=== PATIENT | female | born 1965 | race Hispanic/Latino ===

== ENCOUNTER 2024-01-20 20:52 | Inpatient (IN) | payer SELFPAY ==
[2024-01-20] VITALS (10 sets, daily range): BP systolic 74–171; BP diastolic 45–94; BMI 20.5; BMI 22.3
[2024-01-20 14:38] LABS: % Basophils 0.6 % (0-2); % Immature Granulocytes 0.4 % (0-0.5); % Lymphocytes 24.6 % (20.5-51.1); % Monocytes 7.9 % (1.7-9.3); % Neutrophils 65.5 % (42.2-75.2); Absolute Basophils 0.1 10^3/uL (0-0.2); Absolute Eosinophils 0.1 10^3/uL (0-0.7); Absolute Lymphocytes 2.6 10^3/uL (1.2-3.4); Absolute Monocytes 0.9 10^3/uL (0.1-0.6); Hematocrit 42.5 % (37.0-47.0); Hemoglobin 14.8 g/dL (12.0-16.0); Mean Corp Hgb Conc. 34.8 g/dL (33.0-37.0); Mean Corpuscular Hgb 30.9 pg (27.0-31.0); Mean Corpuscular Volume 88.7 fL (81.0-99.0); Mean Platelet Volume 10.1 fL (7.4-10.4); Nucleated Red Blood Cells % 0 %; Platelet Count 265 10^3/uL (130-400); Red Blood Cell Count 4.79 10^6/uL (4.20-5.40); Red Cell Dist. Width 13.6 % (11.5-14.5); White Blood Cell Count 10.7 10^3/uL (4.8-10.8)
--- NOTE | 2024-01-20 14:41 | EDRN ---
Unable to obtain axiliary temperature at this time. Patient answering very minimal questions at this time. Patient restrained in soft restrains per verbal order of Dr. Sexton. at bedside.
--- NOTE | 2024-01-20 14:47 | ED.GENMED ---
History of Present Illness
General
Chief Complaint: Crisis Evaluation
Source: spouse and ambulance crew
Time Seen by Provider: 01/20/24 14:40
Nursing documentation reviewed up to this point in time: agreed with
History of Present Illness
History of Present Illness:
The patient is a 59-year-old female with a past medical history of epilepsy who was brought in by paramedics after her [id number] noted her to be having abnormal behavior just prior to arrival. According to her , the patient has had a
history of psychotic behavior at least twice over the last 10 years. He reports that he had been at work early this morning and his father called him she reports that the patient was roaming around, was agitated, and seemed to be talking to people
who were not there. No seizure activity had been witnessed, however her reports that he has been at work. reports patient has been doing well and reports no changes. reports that patient does not do drugs, drink alcohol or
smoke cigarettes. Patient does not offer any history. Initially patient arrived agitated and thrashing around. Now, patient is laying still and appears somnolent and will not respond to questions. She will not follow any simple commands or give
any history. However, she appears to be in no acute distress. Her reports that this is exactly how her previous episodes of psychosis have presented.
Past History
Past History
ED Past Medical History: Seizures and Psychiatric
ED Past Surgical History: Other
Social History
Tobacco: Non-smoker
Alcohol: None
Drug: None
Personal:
Living: with family
Employment: Other
Family History
Family History: Hypertension
Review of Systems
Review of Systems
Allergies reviewed?: Yes
Unable to obtain full review of systems at this time due to: non-verbal
Other source history: family
All Other Systems: Not applicable
Phy Exam
Physical Exam
Physical Exam:
Physical Exam
General: Patient appears agitated, occasionally thrashes her body around but then lays still. Will not answer any questions or follow any simple commands. At times hyperventilates. Atraumatic appearing face and head
Neck: supple.
Heart: s1/s2 regular rate and rhythm, no murmur. equal radial pulses.
Lungs: no acute respiratory distress. clear bilaterally
Abdomen: Soft
Neuro: Opens eyes occasionally to voice. Nonfocal
Skin: no rash
Psychiatric: Bizarre, agitated, noninteractive
Extremities: no edema. no calf tenderness. negative homans. good distal pulses
Course
Orders/Labs/Results
Orders:
Orders
01/20/24 14:30
Acetaminophen Urgent
Alcohol Urgent
Complete Blood Count/With Diff Urgent
Comprehensive Metabolic Panel Urgent
Salicylate Urgent
01/20/24 14:40
Lorazepam [Ativan] 1 mg IV NOW STA
01/20/24 14:44
1:1 Observation - Suicide/ Violent Behavior As Directed
Crisis Consult Urgent
Reason for Consult: active psychosis
Crisis Consult Urgent
Reason for Consult: psychosis
Restraints - Violent As Directed
Restraint Type-: Soft Limb-4 point/4 rails
Apply From (date): 01/20/24
Apply from (time): 14:44
Remove (date): 01/20/24
Remove (time): 18:44
01/20/24 14:45
PSYCHIATRY CONSULT Urgent
Consulting Provider: Corazon Perdomo
Was physician already notified: Yes
Reason for consult: acutely psychotic
01/20/24 14:53
Add On- LAB Urgent
Tests Added?: acetaminophen, salicylate
01/20/24 15:38
CT Head W/o Iv Contrast Urgent
Comment:
Reason For Exam: MS change
01/20/24 16:06
Risperidone Disintegrating [Risperdal M-Tab (Orally Disintegrating)] 1 mg PO NOW STA
Risperidone Disintegrating [Risperdal M-Tab (Orally Disintegrating)] 2 mg PO NOW STA
01/20/24 16:08
Lorazepam [Ativan] 2 mg PO NOW STA
01/20/24 16:36
Risperidone Disintegrating [Risperdal M-Tab (Orally Disintegrating)] 1 mg PO NOW STA
01/20/24 17:15
0.9% Sodium Chloride 1000 ml [Nss] 1,000 ml IV BOLUS
01/20/24 17:27
Risperidone Disintegrating [Risperdal M-Tab (Orally Disintegrating)] 0.5 mg PO BIDPRN PRN
01/20/24 17:41
Carbon Dioxide Urgent
Lactic Acid Urgent
Total CK [Creatine Phosphokinase] Urgent
Venous Blood Gas Urgent
%Oxygen/Room Air: RA
01/20/24 17:59
0.9% Sodium Chloride 1000 ml [Nss] 1,000 ml IV BOLUS
01/20/24 20:00
Risperidone Disintegrating [Risperdal M-Tab (Orally Disintegrating)] 0.5 mg PO BID
Abnormal Lab Results
01/20/24 01/20/24
14:30 17:41
Absolute Neuts (auto) 7.0 H 10^3/uL
(1.4-6.5)
Absolute Monos (auto) 0.9 H 10^3/uL
(0.1-0.6)
VBG pO2 74 H mmHg
(30-50)
VBG HCO3 20.4 L mmol/L
(22-27)
Carbon Dioxide 11 L* mmol/L 19 L mmol/L
(22-30) (22-30)
BUN 24 H mg/dl
(7-17)
Creatinine 1.1 H mg/dL
(0.6-1.0)
Glucose 105 H mg/dl
(70-99)
Calcium 10.5 H mg/dl
(8.4-10.2)
Creatine Kinase 628 H U/L
(30-135)
Total Protein 8.9 H g/dl
(6.3-8.2)
Albumin 5.4 H g/dl
(3.5-5.0)
Salicylates < 1.0 L mg/dl
(2.0-20.0)
Acetaminophen < 10 L ug/ml
(10-30)
01/20/24 14:30
01/20/24 17:41
Vital Signs
Initial and Last Documented VS:
Initial Vital Signs
Pulse Resp BP Pulse Ox
81 22 171/92 97
01/20/24 14:24 01/20/24 14:24 01/20/24 14:24 01/20/24 14:24
Last Documented Vital Signs
Temp Pulse Resp BP Pulse Ox
97.9 F 66 18 95/69 100
01/20/24 15:19 01/20/24 15:19 01/20/24 14:28 01/20/24 15:19 01/20/24 15:19
MDM/Problems Addressed
Differential Diagnosis Includes:
Postictal, acute psychosis, intracranial hemorrhage
MDM/Problems Addressed:
Patient presents with acute mental status change
Chronic conditions affecting care:
Seizures, history of psychosis
Acute Exacerbation and/or Progression of Chronic Illness:
Patient may have acute exacerbation of chronic psychiatric illness
*Radiology
Radiology exam reviewed: radiology read reviewed
*Pulse Oximetry
Patient hypoxic: no
*EKG
Interpreted by ED Provider?: NA
*Fur Floor Worker Interpretation
Rate: normal
Interpretation: normal
Rhythm: sinus
*Critical Care Note
Total Time (30-74mins, 75-104mins- exclusive of procedures): 45 minutes
comment:
45 minutes critical care given to patient including frequent reassessments of her mental status, reviewing her lab work, CT head hide speaking to the hospitalist, the patient's and psychiatrist
Data Reviewed
Review of Other/Old Records Reveals: Progress Notes (Psychiatry progress note reviewed from 2021 which shows the patient has had a history of acute psychosis)
Source: family ( who is at the bedside) and ambulance crew
Patient Management
Discussion with other providers: Hospitalist and Other (Psychiatry)
Escalation/DeEscalation of care consider admission/obs:
Given patient's acidosis and mental status change, decision made to admit the patient. Patient has mild rhabdo which is perhaps due to her thrashing her body around or patient may have had a seizure earlier in the day today that was unwitnessed.
ED Attending Note
-
Portions of this chart may have been created with voice recognition software.� Occasional wrong word or��sound alike� substitutions may have occurred due to the inherent limitations of voice recognition software.
Discharge Plan
Departure
Patient Disposition: Admit
Date of Disposition: 01/20/24
Time of Disposition: 18:54
Admit to: Telemetry
Presentation/result/management discussed w/ accepting MD/DO: Hospitalist
Patient with high blood pressure during this ER visit?: Yes
Condition: Fair
Covid-19: Not Applicable
Discharge Problem:
Acute psychosis, Acute metabolic acidosis, Acute rhabdomyolysis
Prescriptions:
No Action
zonisamide [Zonegran] 100 mg Capsule
200 mg PO DAILY
zonisamide [Zonegran] 100 mg Capsule
300 mg PO HS
Referrals:
UNKNOWN - PT DOES,NOT KNOW [Family Provider] -
Interventions
Interventions:
*Risk Screen - Suicide Last Done: 01/20/24 14:40
*General Assessment Last Done: 01/20/24 15:27
*Neglect/Abuse Screening Last Done: 01/20/24 14:40
ED- Fall Risk Assessment Last Done: 01/20/24 15:18
*ED COVID-19 Vaccine History Last Done: 01/20/24 14:40
ED-Psychological Assessment Last Done: 01/20/24 14:48
Discharge Date and Time
Print Language: MAORI
[2024-01-20 14:56] LABS: Alcohol < 10 mg/dl; Blood Urea Nitrogen 24 mg/dl (7-17); Calcium 10.5 mg/dl (8.4-10.2); Carbon Dioxide 11 mmol/L (22-30); Chloride 106 mmol/L (98-107); Glucose 105 mg/dl (70-99); Potassium 4.2 mmol/L (3.5-5.1); Sodium 143 mmol/L (135-145); eGFR 58.61
--- NOTE | 2024-01-20 15:09 | EDRN ---
Restraints removed @ 1505. Patient resting and calm at this time.
--- NOTE | 2024-01-20 15:27 | EDRN ---
Pt's is at bedside. Pt initially supine in 4 point soft restraints upon this RN's evaluation. Dr Sexton came in to see pt at same time - pt calm so all restraints removed by SHERIF Mayfield. This RN wrapped pt's L hand #20g with gauze
wrap. Ring on pt's L index finger removed and handed to pt's who put it on his L 5th finger. Offered him a specimen cup for the ring which he declined and said he would put it in his wallet. Pt opens eyes spontaneously, will occasionally
answer questions with one word answers. Pt unable to provide HPI. says he was called by his father to check on pt and it appeared she was talking to someone that was not there and flailing her arms. says this is not like pt's
seizures and that he thinks she had 'a psychotic break.' Slipper socks and warm blanket provided to pt. Lights dimmed.
[2024-01-20 15:36] LABS: ALT (SGPT) 24 U/L (0-35); AST (SGOT) 30 U/L (14-36); Acetaminophen < 10 ug/ml (10-30); Albumin 5.4 g/dl (3.5-5.0); Alkaline Phosphatase 111 U/L (38-126); Salicylate < 1.0 mg/dl (2.0-20.0); Total Bilirubin 0.5 mg/dl (0.2-1.3); Total Protein 8.9 g/dl (6.3-8.2)
--- NOTE | 2024-01-20 16:00 | CON.MD ---
Consultation - Medical
-
59 yr old F brought to the hospital by her for concerns of sudden bizarre/psychotic behavior. As per this happens every few years and generally resolves after some days, he is not sure what causes this however. Pt previously seen by
psychiatry at in 2021, 2018 and 2018 with similar presentation. It appears from chart review that she has a history of seemingly bizarre/psychotic behavior following seizure, acute illness and/or perhaps environmental stressor.
Pt is able to respond to questions but is limited as she is continuously writhing on hospital bed, notably euphoric, seems to be interacting with something unseen - is able to respond to simple direct questions, is fully oriented, denies depression
(in fact as noted seems quite euphoric). Is not able to meaningfully explain what she is experiencing or when it started (according to he was at work and pts dad called at 1pm because this behavior has suddenly started, saw pt last night as
she was 'totally normal').
As per prior eval in 2019, 'noted to be quite bizarre - was dancing and moving limbs repetitively, repeating phrase in telugu. However was able to stop and follow commands'
Prior such episodes seem to have all self resolved, has had perhaps 4-5 similar events. denies any psychosis otherwise - no delusions observed, no AVH, pt does not talk to herself.
Was being seen at [facility] for depression until 2021, prescribed celexa 20mg at the time, not currently taking. No other significant psychotropic hx.
Does have hx of seizure d/o reportedly fairly stable on keppra
Labs show CO2 11, BUN 24, Cr 1.1 - ABGs pending, being rehydrated
CT scan pending
and she together since 1992, live together - have 3 kids, all adults. Pt does not currently work.
MSE: female, in hospital gown, poor eye contact (sleeping). Unable to assess mood, thought content, thought process, orientation or insight/judgement at this time.
Possibly post-ictal psychosis? vs TME due to underlying physiologic cause
Based on history & current sxs, underlying primary psychotic disorder is unlikely
This behavior has not been dangerous in the past, nor is it currently dangerous - pt is not a threat to herself or to others so would not warrant involuntary psychiatric intervention.
Based on patient history would rule out possible underlying medical issue that may be causing this change in behavior prior to considering this to be primarily psychiatric - if no underlying medical issues identified, then can pursue inpatient
psychiatric admission
Ordered risperidone 1mg + ativan 2mg as may be post-ictal presentation based on hx and risperidone can help psychotic sxs regardless of primary cause
risperidone 0.5mg BID + 0.5mg BIDPRN acute agitation
[2024-01-20] MEDS: ATIVAN 2 MG PO (16:21)
[2024-01-20] MEDS: RISPERDAL M-TAB (ORALLY DISINTEGRATING) 1 MG PO (16:23)
--- NOTE | 2024-01-20 16:44 | EDRN ---
Pt was given 1mg risperdal as ordered at 1623. Scanned pt's bracelet and screen said psychiatrist was in the chart, unable to scan bracelet. Psychiatrist then cancelled the 1mg risperadal that was already given and ordered 2mg risperdal. This RN
put in the original order for the 1mg risperdal that was already given to pt. [facility] and new 2mg order. 2mg order to be cancelled, 1mg risperdal is sufficient at this time.
[2024-01-20] MEDS: NSS 1000 IV ×3 (17:42→23:19)
[2024-01-20 17:56] LABS: Venous Blood Gas B.E. -4.7 mmol/L (-4 to +4); Venous Blood Gas HCO3 20.4 mmol/L (22-27); Venous Blood Gas O2 Sat % 95.9 %; Venous Blood Gas pCO2 37 mmHg (35-48); Venous Blood Gas pH 7.35 (7.32-7.43); Venous Blood Gas pO2 74 mmHg (30-50)
[2024-01-20 18:17] LABS: Lactic Acid 0.9 mmol/L (0.7-2.0)
--- NOTE | 2024-01-20 18:19 | EDRN ---
Called pharmacy to verify risperdal orders
[2024-01-20 18:27] LABS: Carbon Dioxide 19 mmol/L (22-30); Creatine Phosphokinase 628 U/L (30-135)
--- NOTE | 2024-01-20 19:49 | HPS.HSE ---
Family Physician
-
Family Physician: NOT KNOW UNKNOWN - PT DOES
Chief Complaint
-
acute psychosis
History of Present Illness
I could not get any information from the patient as
Information gathered by chart review and speaking with the ER staff.
HPI
59F HZ Sz on Zonisamide BiB concerns of sudden bizarre/psychotic behavior.
- As per this happens every few years and generally resolves after some days,
- Per Crisis consult previously seen by psychiatry at in 2021, 2018 and 2017 with similar presentation.
It appears from chart review that she has a history of seemingly bizarre/psychotic behavior following seizure, acute illness and/or perhaps environmental stressor.
- Prior episodes seem to have all self resolved, has had perhaps 4-5 similar events.
- Was being seen at [facility] for depression until 2021, prescribed celexa 20mg at the time, not currently taking.
No other significant psychotropic hx.
HX seizure d/o reportedly fairly stable on keppra
ROS: denies any psychosis otherwise - no delusions observed, no AVH, pt does not talk to herself.
Medical History
Past Medical History
Past Medical History: Reports Seizures
Past Surgical History: Reports
Social History
Tobacco: Non-smoker
Alcohol: Other
Drug: None
Personal:
Living: With Family
Family History
Family History: Not pertinent
Allergies / Home Medications
Allergies reflects when Allergies were last updated in [facility].
Home Medications with original date entered in [facility]
Allergy/Medication List:
Allergies
Allergy/AdvReac Type Severity Reaction Status Date / Time
No Known Allergies Allergy Verified 07/22/21 16:44
Home Medications
zonisamide 100 mg capsule (Zonegran) 200 mg PO DAILY 01/20/24
zonisamide 100 mg capsule (Zonegran) 300 mg PO HS 01/20/24
Review of Systems
-
Constitutional: Reports No Symptoms
EENT: Reports No Symptoms
Respiratory: Reports No Symptoms
Cardiac: Reports No Symptoms
Abdomen/GI: Reports No Symptoms
: Reports No Symptoms
Musculoskeletal: Reports No Symptoms
Skin: Reports No Symptoms
Neurological: Reports No Symptoms
Endocrine: Reports No Symptoms
Hematologic/Lymphatic: Reports No Symptoms
Psych: Reports See HPI
Physical Exam
Vital Signs
Vital Signs
Temp Pulse Resp BP Pulse Ox
97.9 F 66 18 95/69 100
01/20/24 15:19 01/20/24 15:19 01/20/24 14:28 01/20/24 15:19 01/20/24 15:19
Physical Exam
General: Other (sedated ); No Conversant
HEENT: NormoCephalic and Atraumatic
Respiratory: Clear
Cardiac: S1/S2 and Regular Rhythm; No Murmur or Rub
GI: Soft, Non Tender, Non Distended and Normal Bowel Sounds; No Organomegaly
Rectal: Deferred by Provider
Musculoskeletal: No Clubbing, No Cyanosis and No Edema
Skin: No Rash
Neuro: Sedated; No Awake or Alert
Psych: Other (sedated )
Laboratory Results
-
01/20/24 14:30
01/20/24 17:41
Laboratory Results
Lactic Acid 0.9 mmol/L (0.7-2.0) 01/20/24 17:41
Total Bilirubin Cancelled 01/20/24 14:40
AST Cancelled 01/20/24 14:40
ALT Cancelled 01/20/24 14:40
Alkaline Phosphatase Cancelled 01/20/24 14:40
Data Reviewed
-
CT Scan: Other (pending )
Lab Data: Labs Reviewed by me
Old Records: Reviewed
Impression/Plan
-
Vital Signs
Temp Pulse Resp BP Pulse Ox
97.9 F 66 18 95/69 100
01/20/24 15:19 01/20/24 15:19 01/20/24 14:28 01/20/24 15:19 01/20/24 15:19
Data
Unremarkable CBC
CO2 19
Cr 1.1 eGFR 58
LA 0.9
CK 628
ETOH < 10
VB.35/ VpCO2 37/ VpO2 79
Last hospitalist admission: DATE OF ADMISSION: 06/20/2021 - DATE OF DISCHARGE: 06/28/2021
ASSESSMENT & PLAN
Metabolic acidosis, elevated CPKs likely due to unwitnessed Sz
- IV NS
- IVF and trend metabolic acidosis and CPK
Sedated but protecting AW
S/p Sudden bizarre/psychotic behavior highly suspect post ictal psychosis
Presumptive breakthrough seizure
HX seizures currently on Zonisamide
- NPO and IVF
- Speech to screen for nutrition
- cont Zonisamide
- IV Ativan PRN
- EEG
- Neuro consult
Acute psychotic behavior suspect post ictal acute behavioral dysfunction
s/p risperidone 1mg + Ativan 2mg as may be post-ictal presentation based on hx
- c/w risperidone 0.5mg BID + 0.5mg BID PRN acute agitation per Psych
- Psych consulted
DVT Px: SCD
Full code
IP TLM
--- NOTE | 2024-01-20 20:02 | EDRN ---
Pt moved from C1 to ED#1 since she is a medical admission. L Hand #20g positional so IVFs have been slow to infuse. This RN inserted second IV R forearm #20g and moved ivf to this site. Pt responds to pain, opens eyes spontaneously and falls back
to sleep quickly.
[2024-01-20] MEDS: RISPERDAL M-TAB (ORALLY DISINTEGRATING) 0.5 MG PO (20:11)
--- NOTE | 2024-01-20 20:18 | EDRN ---
Despite new IV site R forearm, IVF slow to infuse because when pt pulls her arm up to her chest, IVF stop infusing. When arm straightened, IVF infuse well. Arm board placed on R forearm to facilitate infusion of IVF
--- NOTE | 2024-01-20 21:30 | PTCARENOTE ---
Pt arrived to room 426-01. Pt transferred from stretcher to bed. Pt AOOx 2, disoriented to year. VSS. Pt calm, cooperative, pleasant. Pt oriented to room call [place] placed within reach.
[2024-01-20] MEDS: ZONEGRAN 300 MG PO (23:27)
[2024-01-21 07:23] VITALS: BP 94/70
--- NOTE | 2024-01-21 08:02 | CON.NEURO ---
Neuro Assessment/Plan
Assessment
Abrupt recurrent onset of confusion, and delusions
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
Plan
patient should have outpatient subspecialist evaluation with [facility] Neurosurgical epilepsy consideration
outpatient MRI of brain with and without contrast
continue Zonisamide 200 mg and 300 mg dosing
start Valproic acid 250 mg BID
outpatient EEG > 1 hour
patient already not driving
Will follow as needed. Patient should follow with usual outpatient neurologist.
Consultation
Order
Date of Consultation: 01/21/24
Requesting Provider: Hospitalist
Reason for Consult: change in mental status
Subjective/Objective
Subjective Data
Date of Service: January 21, 2024
Adapted from my coworkers consultation:
'DATE/TIME OF CONSULTATION: 06/21/2021
Reason for Consultation: Seizure
56-year-old female with a history of seizures was found by her father in law on the ground. She likely had a seizure and had a fall per report. He was not home at that time. They suspect she had a seizure at home although this was
unwitnessed. She also injured her left eye and it appears bruising in her left eye. Patient denies tongue biting or loss control of urination during the events. She was not really able to remember what has happened before she lost consciousness.
Regarding her seizure, she has been following up with local neurologist to Dr. Bunch. She has been taking Trileptal 600 mg in the morning and 900 mg QHS. Her has been reported that patient's baseline seizure frequency is about once every 6 months
with a staring. She does not typically has tonic-clonic seizure activities.
Her reported patient had seizure evaluation with brain MRI and EEG in the past which were unremarkable. She also tried Keppra and Lamictal in the past however she was not able to tolerate both medications due to side effect.'
Subsequent EEGs performed on sequential days x 3 were unremarkable.
Patient received lacosamide and was taken off carbamazepine. Patient was then rotated to zonisamide from lacosamide during that admission. There are no additional notes to add information regarding the patient's care following this hospitalization.
Return to this hospital's emergency department with behavior described as roaming with agitation with interaction with oral hallucinations.
Patient has undergone 8 CAT scans of the head since 2007 which have been all described as unremarkable.
Patient indicates that her memories became confused. Headaches began at age 15. She indicates she has a history of seizures starting at age 21. Currently she indicates confusion has continued.
Objective Data
Vital Signs
Temp Pulse Resp BP Pulse Ox
36.9 C 72 16 94/70 99
01/21/24 07:23 01/21/24 07:23 01/21/24 07:23 01/21/24 07:23 01/21/24 07:23
Sodium Cancelled 01/21/24 06:26
Potassium Cancelled 01/21/24 06:26
BUN Cancelled 01/21/24 06:26
Glucose Cancelled 01/21/24 06:26
Calcium Cancelled 01/21/24 06:26
Ur Buprenorphine Cancelled 01/20/24 17:20
Patient Allergies
No Known Allergies Allergy (Verified 07/22/21 16:44)
Review of Systems
-
History Source: Patient
All other systems: Reviewed and negative
EENT: Negative Decreased Vision or Swallowing Difficulty
Respiratory: Negative Trouble Breathing
Cardiac: Negative Chest Pain
Abdomen/GI: Negative Incontinence of Stool
Genitourinary: Negative Incontinence
Musculoskeletal: Negative Back Pain or Neck Pain
Neuro: Dizzy; Negative Headache
Physical Exam
-
General: No Apparent Distress and Appears Stated Age
Eyes: OU Absent Papilledema, Able to visualize OU, Round OU, [place] Conjunctivae and No Ptosis
HEENT: Anicteric and Moist Mucous Membranes
Neck: Full Range of Motion
Respiratory: No Dyspnea
Cardiac: No JVD
GI: Non-distended
Skin: Unremarkable
Extremities: No Clubbing, No Cyanosis and No Edema
Psych: Intact Judgement/Insight
Extended Neurological Exam
Mood & Affect: Mood Unremarkable and Affect Unremarkable
Attention Span & Concentration: Awake, Alert, Interactive and Mild Difficulty with 2 Step Request
Memory: Vague; Negative Able to Recall (Month and year which she describes as September 2022, although she correctly indicates the name of her usual neurologist)
Tremor: Hand Tremor Absent and Head Tremor Absent
Involuntary Movement: None
Speech: Quality Unremarkable (Accented) and Quantity Unremarkable
Cranial Nerve II: Left Eye: Pupillary Reactivity Unremarkable, Pupillary Size Unremarkable and Visual [place] Intact
Cranial Nerve II: Right Eye: Pupillary Reactivity Unremarkable, Pupillary Size Unremarkable and Visual [place] Intact
Cranial Nerves III, IV, : Extraocular Movement: Extraocular Movement Full in all Directions and No Ptosis
Cranial Nerve VII: Facial Symmetry: Normal Facial Symmetry
Cranial Nerve VIII: Hearing: Unremarkable Hearing to Normal Conversational Volume
Cranial Nerves IX, X: Palate Movement: Palate Elevation Symmetric
Cranial Nerve XI: Shoulder Shrug: Unremarkable
Cranial Nerve XII: Tongue Protusion: Midline
Muscle Strength, Overall: Full Throughout
Muscle Bulk & Tone: Bulk Unremarkable and Tone Unremarkable
Pronator Drift: No Drift in Upper Extremities
Deep Tendon Reflexes: Unremarkable Throughout
Touch Sensation: Unremarkable
Coordination: [id number] Testing Unremarkable
Babinski Sign: Absent Bilaterally
Data Reviewed
-
CT Head: Report Reviewed
EEG: Report Reviewed
Labs: Report Reviewed
Reviewed with: Patient
Old Records: Summarized
Medications
-
Active Medications
Generic Name Dose Route Start Last Admin
Trade Name Freq PRN Reason Stop Dose Admin
Bisacodyl 10 mg 01/20/24 21:30
Bisacodyl 10 Mg Rectal Suppository RECTAL 02/17/24 21:29
[id number] PRN
constipation
Sodium Chloride 1,000 mls @ 100 mls/hr 01/20/24 21:30 01/20/24 23:19
Nss IV 1,000 mls
.Q10H CAROLINE Administration
Lorazepam 1 mg 01/20/24 21:30
Lorazepam 2 Mg/Ml Vial IV 02/17/24 21:29
Q6HPRN PRN
break thru Sz
Polyethylene Glycol 17 grams 01/20/24 21:30
Polyethylene Glycol Powder 17 Grams Packet PO 02/17/24 21:29
DAILYPRN PRN
constipation
Risperidone 0.5 mg 01/20/24 17:27
Risperidone 0.5 Mg Orally Disintegrating Tablet PO 02/17/24 17:26
BIDPRN PRN
agitation
Risperidone 0.5 mg 01/20/24 20:00 01/20/24 20:11
Risperidone 0.5 Mg Orally Disintegrating Tablet PO 02/17/24 19:59 0.5 mg
BID CAROLINE Administration
Senna/Docusate Sodium 1 tablet 01/20/24 21:30
Docusate W/Senna (Jo-Ann-Colace) Tablet PO 02/17/24 21:29
BIDPRN PRN
constipation
Sodium Chloride 0 flush 01/20/24 22:00
Sodium Chloride 0.9% (Flush) Syringe IV 02/17/24 21:59
PER PROTOCOL CAROLINE
Sodium Chloride 0.5 ml 01/20/24 21:42
Nss (Pf) 10 Ml Vial For Ativan 1 Mg Dose IV 02/17/24 21:41
Q6HPRN PRN
IV LORAZEPAM DILUTION
Zonisamide 200 mg 01/21/24 08:00
Zonisamide 100 Mg Capsule PO 02/18/24 07:59
DAILY CAROLINE
Zonisamide 300 mg 01/20/24 22:00 01/20/24 23:27
Zonisamide 100 Mg Capsule PO 02/17/24 21:59 300 mg
HS CAROLINE Administration
Home Medications
�Medication �Instructions �Recorded
zonisamide 100 mg capsule 200 mg PO DAILY 01/20/24
(Zonegran)
zonisamide 100 mg capsule 300 mg PO HS 01/20/24
(Zonegran)
Past History
Past History
ED Past Medical History: Seizures and Psychiatric
ED Past Surgical History: Gynecological ( x 2)
Social History
Tobacco: Non-smoker
Alcohol: None
Drug: None
Personal:
Living: with family
Employment: Other
Family History
Family History: Hypertension
Medications
-
Medications:
Generic Name Dose Route Start Last Admin
Trade Name Freq PRN Reason Stop Dose Admin
Bisacodyl 10 mg 01/20/24 21:30
Bisacodyl 10 Mg Rectal Suppository RECTAL 02/17/24 21:29
[id number] PRN
constipation
Sodium Chloride 1,000 mls @ 100 mls/hr 01/20/24 21:30 01/20/24 23:19
Nss IV 1,000 mls
.Q10H CAROLINE Administration
Lorazepam 1 mg 01/20/24 21:30
Lorazepam 2 Mg/Ml Vial IV 02/17/24 21:29
Q6HPRN PRN
break thru Sz
Polyethylene Glycol 17 grams 01/20/24 21:30
Polyethylene Glycol Powder 17 Grams Packet PO 02/17/24 21:29
DAILYPRN PRN
constipation
Risperidone 0.5 mg 01/20/24 17:27
Risperidone 0.5 Mg Orally Disintegrating Tablet PO 02/17/24 17:26
BIDPRN PRN
agitation
Risperidone 0.5 mg 01/20/24 20:00 01/20/24 20:11
Risperidone 0.5 Mg Orally Disintegrating Tablet PO 02/17/24 19:59 0.5 mg
BID CAROLINE Administration
Senna/Docusate Sodium 1 tablet 01/20/24 21:30
Docusate W/Senna (Jo-Ann-Colace) Tablet PO 02/17/24 21:29
BIDPRN PRN
constipation
Sodium Chloride 0 flush 01/20/24 22:00
Sodium Chloride 0.9% (Flush) Syringe IV 02/17/24 21:59
PER PROTOCOL CAROLINE
Sodium Chloride 0.5 ml 01/20/24 21:42
Nss (Pf) 10 Ml Vial For Ativan 1 Mg Dose IV 02/17/24 21:41
Q6HPRN PRN
IV LORAZEPAM DILUTION
Zonisamide 200 mg 01/21/24 08:00
Zonisamide 100 Mg Capsule PO 02/18/24 07:59
DAILY CAROLINE
Zonisamide 300 mg 01/20/24 22:00 01/20/24 23:27
Zonisamide 100 Mg Capsule PO 02/17/24 21:59 300 mg
HS CAROLINE Administration
[2024-01-21 08:36] LABS: Hematocrit 34.9 % (37.0-47.0); Hemoglobin 12.1 g/dL (12.0-16.0); Mean Corp Hgb Conc. 34.7 g/dL (33.0-37.0); Mean Corpuscular Hgb 30.7 pg (27.0-31.0); Mean Corpuscular Volume 88.6 fL (81.0-99.0); Mean Platelet Volume 9.9 fL (7.4-10.4); Platelet Count 204 10^3/uL (130-400); Red Blood Cell Count 3.94 10^6/uL (4.20-5.40); Red Cell Dist. Width 13.5 % (11.5-14.5); White Blood Cell Count 5.7 10^3/uL (4.8-10.8)
[2024-01-21 09:01] LABS: ALT (SGPT) 19 U/L (0-35); AST (SGOT) 29 U/L (14-36); Albumin 3.6 g/dl (3.5-5.0); Alkaline Phosphatase 81 U/L (38-126); Blood Urea Nitrogen 15 mg/dl (7-17); Calcium 8.5 mg/dl (8.4-10.2); Carbon Dioxide 17 mmol/L (22-30); Chloride 112 mmol/L (98-107); Creatine Phosphokinase 564 U/L (30-135); Estimated Creatinine Clearance 73 ml/min; Glucose 80 mg/dl (70-99); Potassium 3.7 mmol/L (3.5-5.1); Sodium 141 mmol/L (135-145); Total Bilirubin 0.5 mg/dl (0.2-1.3); Total Protein 6.4 g/dl (6.3-8.2); eGFR > 60.00
[2024-01-21] MEDS: DEPAKENE 250 MG PO ×2 (09:19→20:14)
[2024-01-21] MEDS: NSS 1000 IV ×2 (09:19→18:40)
[2024-01-21] MEDS: ZONEGRAN 200 MG PO (09:19)
[2024-01-21] MEDS: RISPERDAL M-TAB (ORALLY DISINTEGRATING) 0.5 MG PO ×2 (09:19→20:13)
--- NOTE | 2024-01-21 14:17 | W.PN.HOSP.TC ---
Today's Communication/Plan
-
Await psyche eval
Pt slowly getting better
DC 1:1
Start a diet
Assessment / Plan
Assessment / Plan
59-year-old female with psychosis. Patient was seen in crisis. She had similar evaluations at psych crisis in 2018, 2019 and 2021.
Patient's at bedside been for 30 years.. She did have depression 23 years ago with childbirth. Other than that she is mostly stable. He also feels that she is getting better and getting back to baseline slowly however
not quite baseline yet.
On examination patient is awake and alert pleasant.
With difficulty she was able to recall which month this is in ER. She knows that she is at [facility] and how she is.
Cardiovascular system S1-S2 appreciated
Chest clear to auscultation
Abdomen soft and nontender
Neuroexam is nonfocal
Head CT-no acute changes
# Metabolic acidosis with elevated CPK-treated as mild rhabdomyolysis nos
IV fluids-will continue and finish this back
Trend CPKs
Presumably due to breakthrough seizures
# Psychosis
in the ER patient got risperidone 1 mg and 2 mg of Ativan
Continue risperidone 0.5 mg twice daily and 0.5 mg twice daily as needed for agitation
Psychiatry evaluation
# Seizures on zonisamide as outpatient
Continue zonisamide 200 mg in the morning and 300 mg milligrams at bedtime
Valproic acid 250 mg twice daily started
Neurology consulted
As needed Ativan
Seizure precautions
Will get MRI brain with and with out contrast here as pt prefers that .
Needs EEG also ( Op OK per neuro notes)
# Depression-patient was prescribed Celexa-not taking it now
# DVT prophylaxis-SCDs
# Full code
D/W RN
D/W at bed side
Anticipated Discharge: Within 24 hours
Subjective/Interval History
-
Date of Service: January 21, 2024
Objective Data
-
Labs:
Laboratory Results
01/21/24 01/21/24
06:26 08:10
WBC Cancelled 5.7
Hgb Cancelled 12.1
Hct Cancelled 34.9 L
Plt Count Cancelled 204 D
Sodium Cancelled 141
Potassium Cancelled 3.7
Chloride Cancelled 112 H
Carbon Dioxide Cancelled 17 L
BUN Cancelled 15
Creatinine Cancelled 0.7
Glucose Cancelled 80
Calcium Cancelled 8.5 D
Total Bilirubin Cancelled 0.5
AST Cancelled 29
ALT Cancelled 19
Alkaline Phosphatase Cancelled 81
Vital Signs:
Vital Signs
Temp Pulse Resp BP Pulse Ox
98.5 F 72 16 94/70 99
01/21/24 07:23 01/21/24 07:23 01/21/24 07:23 01/21/24 07:23 01/21/24 07:23
I&O
01/20/24 01/21/24 01/22/24
06:59 06:59 06:59
Intake Total 150 / 150
Balance 150 / 150
--- NOTE | 2024-01-21 14:25 | W.PN.UPDATE ---
Update Note
Progress Note Update
59 y/o woman with history of seizures and infrequent bizarre episodes discovered on the floor by [id number]. She was initially obtunded but when seen by psychiatrist in ED had hypomanic symptoms. There is no history of substance abuse. She has
had extensive seizure work-ups per Neurology consult. Takes zonisamide and has history of treatment with several other anticonvulsants. Was started today on Depakote by Dr. Ortega in addition to the zonisamide. Of note, CK was elevated. Tox
screen negative.
I saw patient in her room. Was sleeping with television on and full lunch tray. Was able to rouse her. Was minimally communicative but offered no complaints. Nurse said had visited recently. (After my visit she ate her lunch per the
nurse.)
She has been started on Risperdal 0.5 mg. BID + PRN. I am not certain this will be necessary long-term as this may be a post-ictal phenomenon. Will reduce if too sedating and defer to Neurology if this is appropriate therapy.
Psychiatry will follow.
[2024-01-21 15:00] VITALS: BP 114/73
[2024-01-21 17:16] LABS: Amphetamines Negative (Negative); Barbiturates Negative (Negative); Benzodiazepines Positive (Negative); Buprenorphine Negative (Negative); Cocaine Negative (Negative); Marijuana Negative (Negative); Methadone Negative (Negative); Methamphetamines Negative (Negative); Opiates Negative (Negative); Phencyclidine Negative (Negative); Tricyclic Antidepressants Negative (Negative)
[2024-01-21 17:36] LABS: Fentanyl, Urine Negative (Negative)
[2024-01-21] MEDS: ZONEGRAN 300 MG PO (22:03)
[2024-01-21 23:00] VITALS: BP 99/56
[2024-01-22] MEDS: NSS 1000 IV (03:50)
[2024-01-22 07:32] VITALS: BP 109/70
[2024-01-22] MEDS: DEPAKENE 250 MG PO (08:13)
[2024-01-22] MEDS: ZONEGRAN 200 MG PO (08:13)
[2024-01-22] MEDS: RISPERDAL M-TAB (ORALLY DISINTEGRATING) 0.5 MG PO (08:13)
[2024-01-22 08:46] LABS: % Basophils 0.8 % (0-2); % Eosinophils 2.1 % (0-6); % Immature Granulocytes 0.3 % (0-0.5); % Monocytes 8.2 % (1.7-9.3); % Neutrophils 62.6 % (42.2-75.2); Absolute Basophils 0.1 10^3/uL (0-0.2); Absolute Eosinophils 0.1 10^3/uL (0-0.7); Absolute Lymphocytes 1.6 10^3/uL (1.2-3.4); Absolute Monocytes 0.5 10^3/uL (0.1-0.6); Hematocrit 33.2 % (37.0-47.0); Hemoglobin 11.2 g/dL (12.0-16.0); Mean Corp Hgb Conc. 33.7 g/dL (33.0-37.0); Mean Corpuscular Hgb 30.7 pg (27.0-31.0); Mean Platelet Volume 9.7 fL (7.4-10.4); Nucleated Red Blood Cells % 0 %; Platelet Count 196 10^3/uL (130-400); Red Blood Cell Count 3.65 10^6/uL (4.20-5.40); Red Cell Dist. Width 14.1 % (11.5-14.5); White Blood Cell Count 6.3 10^3/uL (4.8-10.8)
[2024-01-22 09:24] LABS: ALT (SGPT) 19 U/L (0-35); AST (SGOT) 23 U/L (14-36); Albumin 3.3 g/dl (3.5-5.0); Alkaline Phosphatase 87 U/L (38-126); Blood Urea Nitrogen 16 mg/dl (7-17); Calcium 8.6 mg/dl (8.4-10.2); Carbon Dioxide 18 mmol/L (22-30); Chloride 113 mmol/L (98-107); Creatine Phosphokinase 286 U/L (30-135); Estimated Creatinine Clearance 73 ml/min; Glucose 108 mg/dl (70-99); Potassium 4.1 mmol/L (3.5-5.1); Sodium 142 mmol/L (135-145); Total Bilirubin 0.2 mg/dl (0.2-1.3); Total Protein 6.1 g/dl (6.3-8.2); eGFR > 60.00
--- NOTE | 2024-01-22 12:40 | W.PN.HOSP.TC ---
Today's Communication/Plan
-
dc
Assessment / Plan
Assessment / Plan
59yo F with PMHX of epilepsy brought with episode of confusion and agitation, managed for psychosis, most likely contributed to post-ictal state, however no whitnessed seizures noted, as patient was alone at home on the day when symptoms occured.
Neurologist recommneded adjustment of AED and outpatient f/u with her neurologist . Psychiatry involved, started on Respiridal PRN. SInce agitation was due to post-ictal phenomanon - no [employer] antipsychotics needed. Brain MRI neg for
acute finsings. MEdically stable for discharge as discussed with .
A/P:
#COnfisuion, agitation post-ictal
#Seizure d/o
Seizure precauutions
Psych and neuro followed
AED adjusted
MRI neg for acute findings
#Post-ictal mild rhabdomiolysis
improved
DVT ppx on SCDs
FUll code
I have spent at least 38min reviewing chart, test results, communication with consultants and direct patient care
Anticipated Discharge: Today
Subjective/Interval History
-
Date of Service: January 22, 2024
Objective Data
-
Labs:
Laboratory Results
01/22/24
08:40
WBC 6.3
Hgb 11.2 L
Hct 33.2 L
Plt Count 196
Sodium 142
Potassium 4.1
Chloride 113 H
Carbon Dioxide 18 L
BUN 16
Creatinine 0.7
Glucose 108 H
Calcium 8.6
Total Bilirubin 0.2
AST 23
ALT 19
Alkaline Phosphatase 87
Vital Signs:
Vital Signs
Temp Pulse Resp BP Pulse Ox
98.6 F 104 18 109/70 100
01/22/24 07:32 01/22/24 07:32 01/22/24 07:32 01/22/24 07:32 01/22/24 07:32
I&O
01/21/24 01/22/24 01/23/24
06:59 06:59 06:59
Intake Total 2790 / 2790
Output Total 1550 / 1550
Balance 1240 / 1240
Review of Systems
-
History Source: Patient and Family
All other systems: Reviewed and negative
Physical Exam
-
General: No Apparent Distress
HEENT: Normocephalic
Cardiac: Regular Rhythm
GI: Soft, Nontender and Nondistended
Neuro: Awake, Alert, Oriented and AO x 3
Psych: Calm
--- NOTE | 2024-01-22 12:44 | W.DCSUMMARY ---
Discharge Summary
Discharge Data
Date of Admission: 01/20/24
Date of Discharge: 01/22/24
-
Pending Results: No
Hospital Course
59yo F with PMHX of epilepsy brought with episode of confusion and agitation, managed for psychosis, most likely contributed to post-ictal state, however no whitnessed seizures noted, as patient was alone at home on the day when symptoms occured.
Neurologist recommneded adjustment of AED and outpatient f/u with her neurologist . Psychiatry involved, started on Respiridal PRN. SInce agitation was due to post-ictal phenomanon - no prison antipsychotics needed. Brain MRI neg for
acute finsings. MEdically stable for discharge as discussed with .
Patient was managed for:
#COnfisuion, agitation post-ictal
#Seizure d/o
#Post-ictal mild rhabdomyolysis
I have spent at least 38min reviewing chart, test results, communication with consultants and direct patient care
Discharge Plan
-
Patient Disposition: Home (Routine Discharge)
Discharge Diagnosis/Procedures: post-ictal state
Diet: Regular
Activity: As tolerated
Driving Restrictions: No driving
Referrals:
Sai Bunch MD [Active] - in one to two weeks
UNKNOWN - PT DOES,NOT KNOW [Family Provider] -
Prescriptions:
New
sennosides-docusate sodium 8.6-50 mg Tablet
1 tab PO BIDPRN PRN (Reason: constipation) Qty: 60 0RF
valproic acid 250 mg Capsule
250 mg PO BID Qty: 60 0RF
Continued
zonisamide [Zonegran] 100 mg Capsule
200 mg PO DAILY
zonisamide [Zonegran] 100 mg Capsule
300 mg PO HS
Discharge Orders:
Discharge Patient (As Directed); Ordered 01/22/24
Ordered By: Harvey Carson
Discharge Date and Time
Print Language: JAPANESE
--- NOTE | 2024-01-22 12:53 | CM ---
Cm met with pt noted dc order
Pt resides with her spouse
Denies financial insecurities
Pt independent in the room
No dc needs noted
Spouse will transport home
Discharge Disposition- home, no needs, family transport
[2024-01-22 13:29] VITALS: BP 108/75
== END 2024-01-22 13:42 | disposition home or self-care (01) | DRG 101 ==
LOC: 4 WEST ACU 20:52
PROVIDERS: Hospitalist; ADMITTING PHYSICIAN Internal Medicine; ATTENDING PHYSICIAN Internal Medicine; CONSULT PHYSICIAN Psychiatry & Neurology Neurology; CONSULT PHYSICIAN Psychiatry & Neurology Psychiatry; EMERGENCY PHYSICIAN Emergency Medicine
DX: G40.909 Epilepsy, unspecified, not intractable, without status epilepticus (principal); F23 Brief psychotic disorder; E87.21 Acute metabolic acidosis; M62.82 Rhabdomyolysis; W19.XXXA Unspecified fall, initial encounter; F32.A Depression, unspecified; Z82.49 Family history of ischemic heart disease and other diseases of the circulatory system; K59.00 Constipation, unspecified
CPT/HCPCS: 70450; 70553; 80053; 80143; 80179; 80306; 80307; 82077; 82374; 82550; 82805; 83605; 85025; 85027; 96361; 96374; 99291; A9575

== ENCOUNTER → 2024-04-13 13:12 | Outpatient (REF) | payer OTHER, SELFPAY | LOC: HWRAD 13:12 | PROVIDERS: ATTENDING PHYSICIAN Nurse Practitioner Acute Care; REFERRING PHYSICIAN Specialist | DX: S06.5XAA Traumatic subdural hemorrhage with loss of consciousness status unknown, initial encounter (principal) | CPT/HCPCS: 70450 ==